=== PATIENT | male | born 1985 | race Caucasian/White ===

== ENCOUNTER 2018-08-17 16:36 | Emergency (ER) | payer OTHER ==
--- NOTE | 2018-08-17 16:38 | ED Physician Documentation ---
PD HPI UPPER EXT INJURY - Stated complaint Stated Complaint: RT THUMB LAC - History obtained from History obtained from: Patient - History of Present Illness Location: Right, Finger (thumb at IP joint) Type of injury: Laceration Where injury occurred: Work Timing - onset: Today Timing - duration: Hours Timing - details: Abrupt onset, Still present (opens and bleeds with ROM of the thumb, after it had stopped with direct pressure.) Worsened by: Moving, Palpating Associated symptoms: No: Weakness, Numbness, Swelling Review of Systems Skin: reports: Laceration (s) Neurologic: denies: Focal weakness, Numbness, Near syncope PD PAST MEDICAL HISTORY - Past Medical History Past Medical History: No - Allergies Allergies/Adverse Reactions: Allergies Allergy/AdvReac Type Severity Reaction Status Date / Time azithromycin Allergy Rash Verified 08/17/18 16:43 PD ED PE NORMAL - Vitals Vital signs reviewed: Yes - General General: Alert and oriented X 3, No acute distress, Well developed/nourished - Derm Derm: Normal color, Warm and dry - Extremities Extremities: Other (right thumb with laceration to fatty tissue on radial side at IP joint. No deep structures seen. It does open easily with flex/ext of the thumb. ) - Neuro Neuro: No motor deficit, No sensory deficit Results - Vitals Vitals: Vital Signs - 24 hr 08/17/18 16:39 Temperature 36.5 C Heart Rate 63 Respiratory 16 Rate Blood Pressure 140/80 H O2 Saturation 96 Oxygen O2 Source Room air Procedures - Laceration (location) right thumb Length in cm: 1.5 Wound type: Linear, Into subcut fat, Clean. No: Into muscle Neurovascular status: Sensory intact, Motor intact, Vascular intact Tendon involvement: Tendon intact Anesthesia: Lidocaine 1% with epi Wound Preparation: Wound explored, To the base. No: FB identified Skin layer closure: Nylon, Interrupted, Size #-0 - enter number (4), Sutures - enter # (5) Departure - Departure Disposition: 01 Home, Self Care Clinical Impression: Thumb laceration Qualifiers: Encounter type: initial encounter Damage to nail status: without damage Foreign body presence: without foreign body Laterality: right Qualified Code(s): S61.011A - Laceration without foreign body of right thumb without damage to nail, initial encounter Condition: Stable Record reviewed to determine appropriate education?: Yes Instructions: ED Laceration Hand Follow-Up: ELENITA Fraire [Provider Group] Comments: It is okay to wash and shower. Clean off the wound twice a day with soap and water, or peroxide and water. Apply some antibiotic ointment to it to keep it moist. Also to watch for signs of infection such as purulence, redness or increasing pain. Return to your primary care or the ER at the specified time for suture removal. Suture removal 9 to 10 days Discharge Date/Time: 08/17/18 17:20
[2018-08-17 16:42] VITALS: BP 140/80
[2018-08-17] MEDS ORDERED: BACITRACIN OINT TOP STA (17:09)
[2018-08-17] MEDS ORDERED: BACITRACIN OINT TOP ONE (17:15)
== END 2018-08-17 17:20 | disposition home or self-care (01) ==
LOC: ED 16:36
DX: S61.011A Laceration without foreign body of right thumb without damage to nail, initial encounter (principal); W26.8XXA Contact with other sharp object(s), not elsewhere classified, initial encounter; Y99.0 Civilian activity done for income or pay
CPT/HCPCS: 12001; 99282; 99283; A9270